=== PATIENT | female | born 1965 | race Caucasian/White ===

== ENCOUNTER → 2017-05-16 | Outpatient (CLI) | payer BC ==
[~2017-05-16] MED LIST: BRINTELLIX10 PO; CELEXA40 MG PO; LAMICTAL 25MG T25 MG PO
== END ==
LOC: BHSO 15:57
DX: F41.1 Generalized anxiety disorder (principal)

== ENCOUNTER → 2018-05-12 | Outpatient (CLI) | payer BC | LOC: MC.RAD 09:14 | DX: Z12.31 Encounter for screening mammogram for malignant neoplasm of breast (principal); Z98.890 Other specified postprocedural states ==

== ENCOUNTER → 2019-05-25 | Outpatient (CLI) | payer BC | LOC: MC.RAD 10:39 | DX: Z12.31 Encounter for screening mammogram for malignant neoplasm of breast (principal) ==

== ENCOUNTER 2020-04-07 17:12 | Emergency (ER) | payer BC ==
[~2020-04-07] VITALS: Ht 172.7 cm; Wt 88.6 kg
[2020-04-07 17:27] VITALS: TEMP 98.6
[2020-04-07] MEDS ORDERED: PROTONIX20 MG PO (18:55)
[2020-04-07 19:41] VITALS: BP 153/89; PULSE 68
== END 2020-04-07 19:02 | disposition home or self-care (01) ==
LOC: COL.ER 17:12
DX: T18.128A Food in esophagus causing other injury, initial encounter (principal); K22.2 Esophageal obstruction; Z88.2 Allergy status to sulfonamides; Z88.6 Allergy status to analgesic agent

== ENCOUNTER 2020-04-14 06:02 | Day surgery (SDC) | payer BC ==
[~2020-04-14] VITALS: Ht 172.7 cm; Wt 88.9 kg
[~2020-04-14 06:02] MED LIST changes: +PROTONIX20 MG PO
[2020-04-14 06:34] VITALS: BP 136/85; PULSE 77; TEMP 97.9
[2020-04-14] MEDS ORDERED: LEXAPRO20 MG PO (06:43)
[2020-04-14] MEDS ORDERED: PROTONIX20 MG PO (06:44)
[2020-04-14] MEDS ORDERED: MOTRIN 800800 MG/TAB PO (06:45)
[2020-04-14] MEDS ORDERED: SUDAFED30 MG PO (06:46)
[2020-04-14] MEDS ORDERED: ONE-A-DAY ESSE1 EACH PO (06:46)
[2020-04-14] MEDS ORDERED: MOBIC 7.5MG7.5 MG PO (06:47)
--- NOTE | 2020-04-14 06:49 | NUR ---
TO RM 1 AT 0615- CALL LIGHT IN REACH SON AT BEDSIDE.
[2020-04-14 07:40] VITALS: BP 121/79; PULSE 72
--- NOTE | 2020-04-14 07:40 | NUR ---
Patient brought back to [facility] via cart, ambulated to chair with one assist. Alert and oriented, son at bedside. Placed on monitors, vital signs stable. Denies pain or nausea. Warm blanket provided. Jose R JASON at bedside for report. Patient requests coffee, water, and apple sauce. Call dalal within reach, will continue to monitor.
[2020-04-14 07:55] VITALS: BP 129/87; PULSE 67
--- NOTE | 2020-04-14 07:55 | NUR ---
Patient tolerating food and drink without difficulty. No complaints in regards to swallowing. MD in room to discuss results.
[2020-04-14 08:10] VITALS: BP 130/80; PULSE 62
--- NOTE | 2020-04-14 08:10 | NUR ---
Patient states she is feeling well and ready to go home.
--- NOTE | 2020-04-14 08:15 | NUR ---
IV removed from right hand, intact. Discharge instructions reviewed with patient and family member. Patient to get dressed at this time.
--- NOTE | 2020-04-14 08:30 | NUR ---
Patient brought down to lobby via wheel chair. Son to drive patient home. All possesions in hand.
[2020-04-14 10:59] VITALS: BP 137/86; PULSE 75
== END 2020-04-14 08:15 | disposition home or self-care (01) ==
LOC: SDCO 06:02
DX: K21.00 Gastro-esophageal reflux disease with esophagitis, without bleeding (principal); K31.7 Polyp of stomach and duodenum; K22.2 Esophageal obstruction; K29.30 Chronic superficial gastritis without bleeding; K29.80 Duodenitis without bleeding; F32.9 Major depressive disorder, single episode, unspecified; F41.9 Anxiety disorder, unspecified; Z88.5 Allergy status to narcotic agent; Z88.2 Allergy status to sulfonamides; Z90.710 Acquired absence of both cervix and uterus; J30.2 Other seasonal allergic rhinitis; Z20.828 Contact with and (suspected) exposure to other viral communicable diseases
CPT/HCPCS: C1726; J2704; J7030

== ENCOUNTER → 2020-05-01 | Outpatient (CLI) | payer BC ==
[~2020-05-01] MED LIST changes: +LEXAPRO20 MG PO; +MOBIC 7.5MG7.5 MG PO; +MOTRIN 800800 MG/TAB PO; +ONE-A-DAY ESSE1 EACH PO; +SUDAFED30 MG PO
== END ==
LOC: COL.LAB 08:30
DX: K29.70 Gastritis, unspecified, without bleeding (principal); Z20.828 Contact with and (suspected) exposure to other viral communicable diseases

== ENCOUNTER → 2020-05-29 | Outpatient (CLI) | payer BC | LOC: MC.RAD 08:33 | DX: Z12.31 Encounter for screening mammogram for malignant neoplasm of breast (principal); N63.20 Unspecified lump in the left breast, unspecified quadrant; Z98.890 Other specified postprocedural states ==

== ENCOUNTER → 2021-08-28 | Outpatient (CLI) | payer BC | LOC: MC.RAD 07-05 13:00 | DX: Z12.31 Encounter for screening mammogram for malignant neoplasm of breast (principal) ==

== ENCOUNTER 2022-04-12 08:13 | Day surgery (SDC) | payer BC ==
[~2022-04-12] VITALS: Ht 172.7 cm; Wt 87.2 kg
[2022-04-12 09:57] VITALS: BP 172/98; PULSE 73; TEMP 97.3
[2022-04-12] MEDS ORDERED: PROTONIX 40MG T40 MG PO (10:06)
[2022-04-12] MEDS ORDERED: LEXAPRO 5MG5 MG PO (10:06)
[2022-04-12] MEDS ORDERED: LAMICTAL 25MG T25 MG PO (10:07)
[2022-04-12 12:15] VITALS: BP 147/88; PULSE 73; TEMP 98.6
[2022-04-12 12:30] VITALS: BP 148/93; PULSE 72
--- NOTE | 2022-04-12 12:50 | NUR ---
1210 Pt returns from endo procedure via cart and RN assist to [facility]. Pt ambulates from cart to recliner with RN assist. Monitors on and alarms set. Call light within reach. Report received from EREN Randhawa. Pt alert and oriented. Pt requests coffee and muffin. Pt denies any pain or nausea. Family present in room. 1220 Pt taking food and drink well. No complications noted. 1243 Discharge instructions given to pt and pt's family. All questions answered to their satisfaction. Handed to pt are a thank you card and discharge information. 1250 Pt transferred out of the hospital via wheelchair and Jacques assist, to private vehicle driven by family member.
== END 2022-04-12 12:50 | disposition home or self-care (01) ==
LOC: SDCO 08:13
DX: Z12.11 Encounter for screening for malignant neoplasm of colon (principal); K63.5 Polyp of colon; Z87.891 Personal history of nicotine dependence
CPT/HCPCS: J2704; J7030